=== PATIENT | female | born 2000 | race Caucasian/White ===

== ENCOUNTER 2023-05-03 00:32 | Emergency (ER) | payer OTHER, MEDICAID ==
[~2023-05-03] VITALS: Ht 172.7 cm; Wt 72.6 kg
[2023-05-03 00:43] VITALS: BP_SYST 129; PULSE 86; RESP 20; TEMP 98.1; O2SAT 97
== END 2023-05-03 01:37 | disposition left against medical advice (07) ==
LOC: SED 00:32
DX: R05.9 Cough, unspecified (principal); R50.9 Fever, unspecified; R09.89 Other specified symptoms and signs involving the circulatory and respiratory systems; Z53.21 Procedure and treatment not carried out due to patient leaving prior to being seen by health care provider
CPT/HCPCS: 99281